=== PATIENT | female | born 1940 | race Caucasian/White ===

== ENCOUNTER 2019-06-19 13:34 | Emergency (ER) | payer MEDICAID, OTHER ==
[~2019-06-19] VITALS: Ht 167.6 cm; Wt 68.0 kg
[~2019-06-19 13:34] MED LIST: ASPI-1886 PO; ATOR20TA40 PO; BACL10TA4 PO; CARV6.252 PO; LOSA25TA32 PO; TRAM50TA3 PO
[2019-06-19 13:40] VITALS: BP 128/92
--- NOTE | 2019-06-19 13:42 | NUR ---
Patient ambulated to bed 9. RN evaluating patient at bedside.
--- NOTE | 2019-06-19 13:50 | NUR ---
78 YEAR OLD FEMALE COMPLAINS OF CHEST PAIN AND SHORTNESS OF BREATHE X 5 HOURS. PATIENT STATES THAT CHEST PAIN IS SHARP, 8/10 AND RADIATING TO BACK. PATIENT BREATHING EVEN AND LABORED, LUNGS WHEEZING ON EXPIRATION, RR 37, SPO2 95%. PATIENT PLACED IN HIGH FOWLERS POSITION. HR 110, BP 128/92. PATIENT ALERT AND ORIENTED, GCS15. SKIN WARM AND DRY. DAUGHTER AT BEDSIDE. BED IN LOWEST POSITION, LOCKED, BED RAIL UPX1.
[2019-06-19] MEDS ORDERED: NACL 0.9% 500 ML IV SCH (14:41)
[2019-06-19] MEDS ORDERED: ALBUTEROL SULFATE/IPRATROPIU 3 ML SOL IH ONE (14:45)
[2019-06-19] MEDS ORDERED: methylPREDNISolone SS 125 MG/2 ML VIAL IVP ONE (14:45)
[2019-06-19] MEDS ORDERED: diphenhydrAMINE 50 MG/ML VIAL IVP ONE (14:45)
[2019-06-19] MEDS ORDERED: PIPERACILLIN/TAZOBACTAM 3.375 GM in DEXTROSE 5% 50 ML IV ONE (14:45)
[2019-06-19] MEDS ORDERED: PIPERACILLIN/TAZOBACTAM 3.375 GM VIAL IV ONE (14:57)
--- NOTE | 2019-06-19 15:06 | NUR ---
Breathing treatment administered by respiratory therapist at bedside.
--- NOTE | 2019-06-19 15:09 | NUR ---
pharmacy tech customer service at bedside.
[2019-06-19] MEDS ORDERED: FURO-570 PO (15:19)
[2019-06-19] MEDS ORDERED: HYDROcodone/APAP 5/325 MG 1 TAB TAB PO ONE (15:50)
[2019-06-19 16:01] LABS: BASOPHILS % (AUTO) 0.4 % (0.0-2.0); EOSINOPHILS % (AUTO) 0.4 % (0.0-4.0)
[2019-06-19 16:17] LABS: PROTHROMBIN TIME 13.2 secs (10.8-13.4)
--- NOTE | 2019-06-19 16:20 | NUR ---
PATIENT RESTING WITH EYES CLOSED, BREATHING EVEN AND NONLABORED.
[2019-06-19 16:25] LABS: ANION GAP 15.5 (8-16); CARBON DIOXIDE 25.3 mmol/L (21-32); CHLORIDE 102 mmol/L (98-107); CREATININE 1.2 mg/dL (0.6-1.3); GLUCOSE 93 mg/dL (74-106); POTASSIUM 3.8 mmol/L (3.5-5.1); SODIUM SERUM 139 mmol/L (136-145); UREA NITROGEN, BLOOD 20 mg/dL (7-18)
[2019-06-19 16:36] LABS: HEMATOCRIT 42.9 % (36-48); HEMOGLOBIN 13.5 g/dL (12.0-16.0); LYMPHOCYTES # (AUTO) 0.7 K/uL (2.5-16.5); MEAN CORPUSCULAR HGB CONC 31 g/dL (33-37); MEAN CORPUSCULAR VOLUME 86.8 fL (80-94); MONOCYTES # (AUTO) 0.6 K/uL (0.8-1.0); MONOCYTES % (AUTO) 13.3 % (1.7-9.3); NEUTROPHILS # (AUTO) 3.5 K/uL (1.8-7.7); NEUTROPHILS % (AUTO) 71.9 % (42.2-75.2); PLATELET COUNT (AUTO) 183 K/uL (140-450); RED BLOOD CELL COUNT(AUTO) 4.95 MIL/uL (4.20-5.40); RED CELL DISTRIBUTION WIDTH 16.9 % (11.6-13.7); WHITE BLOOD COUNT (AUTO) 4.9 K/uL (4.8-10.8)
[2019-06-19 16:37] LABS: ALBUMIN 2.9 g/dL (3.4-5.0); ASPARTATE AMINOTRANSFERASE 43 U/L (15-37); TOTAL BILIRUBIN 1.7 mg/dL (0.0-1.0)
[2019-06-19 16:39] LABS: MEAN CORPUSCULAR HEMOGLOBIN 27 pg (27-31)
--- NOTE | 2019-06-19 17:30 | NUR ---
PATIENT ALERT AND ORIENTED, BREATHING EVEN AND UNLABORED, RR 18, SPO2 97% SKIN WARM AND DRY. DAUGHTER AT BEDSIDE.
--- NOTE | 2019-06-19 17:37 | NUR ---
Patient does not wish to proceed with medical care recommended by DR RETANA. Patient given information related to possible complications, up to and including , which could occur as a result of leaving hospital at this time. Patient verbalizes understanding of risks involved leaving against medical advice. Patient has signed AMA form.
--- NOTE | 2019-06-19 17:37 | NUR ---
PATIENTS DAUGHTER STATES THAT THEY DO NOT WANT TO BE TRANSFERED TO [facility] AND WANT TO LEAVE AGAINST MEDICAL ADVICE. DOCTOR LAINEY NOTIFIED.
[2019-06-19 17:40] VITALS: BP 115/68
== END 2019-06-19 17:37 | disposition left against medical advice (07) ==
LOC: MED 13:34
DX: J44.1 Chronic obstructive pulmonary disease with (acute) exacerbation (principal); J11.1 Influenza due to unidentified influenza virus with other respiratory manifestations
CPT/HCPCS: 36415; 36600; 71045; 80053; 82803; 83605; 83735; 83880; 84484; 85025; 85610; 85730; 87040; 87086; 87186; 87804; 93005; 94640; 96365; 96375; 99284; J1200; J2543; J2930; J7030; J7620